=== PATIENT | female | born 1965 | race American Indian/Alaskan Native ===

== ENCOUNTER → 2016-11-19 | Outpatient (CLI) | payer MEDICARE, OTHER | LOC: MW.CHGS 08:00 | PROVIDERS: ATTEND Surgery | DX: K62.5 Hemorrhage of anus and rectum (principal); Z80.0 Family history of malignant neoplasm of digestive organs; F32.9 Major depressive disorder, single episode, unspecified; I10 Essential (primary) hypertension | CPT/HCPCS: 99214 ==

== ENCOUNTER 2016-11-28 08:08 | Day surgery (SDC) | payer MEDICARE, OTHER ==
[~2016-11-28 08:08] MED LIST: Lactated Ringers 1,000 ML IV SCH; Lidocaine 2% 5 ML SDV ONE; Midazolam 1 MG/ML 2 ML SDV ONE; Propofol 200 MG/20 ML SDV ONE; fentaNYL 100 MCG/2 ML SDV ONE
--- NOTE | 2016-11-28 08:34 | PCM.PREANE ---
Preanesthetic Assessment - Anesthesia/Transfusion/Family Hx Anesthesia History: Prior Anesthesia Without Reaction Other Type of Anesthesia Reaction Comment: Only problem in past is "I have TMJ and they had trouble last surgery" Family History of Anesthesia Reaction: No Transfusion History: No Prior Transfusion(s) Intubation History: Unknown - Review of Systems General: No Symptoms Pulmonary: No Symptoms Cardiovascular: No Symptoms Neurological: No Symptoms Other: Reports: None - Physical Assessment O2 Sat by Pulse Oximetry: 97 Respiratory Rate: 16 Vital Signs: Last Vital Signs Temp 36.9 C 11/28/16 08:24 Pulse 88 11/28/16 08:24 Resp 16 11/28/16 08:24 BP 122/71 11/28/16 08:24 Pulse Ox 97 11/28/16 08:24 Height: 1.7 m Weight: 68.492 kg ASA Class: 3 Mental Status: Alert & Oriented x3 Airway Class: Mallampati = 2 Dentition: Reports: Normal Dentition, [place](s) (x1 upper front (left)) Thyro-Mental Finger Breadths: 3 Mouth Opening Finger Breadths: 3 ROM/Head Extension: Full Lungs: Clear to auscultation, Normal respiratory effort Cardiovascular: Regular Rate, Regular Rhythm - Allergies Allergies/Adverse Reactions: Allergies Allergy/AdvReac Type Severity Reaction Status Date / Time levofloxacin [From Levaquin] Allergy Vomiting Verified 08/14/16 14:02 lisinopril Allergy Nausea Verified 11/26/16 12:16 tramadol Allergy Nausea and Verified 08/14/16 14:02 Vomiting venom-honey bee Allergy Hives Verified 08/14/16 14:02 [bee venom (honey bee)] - Blood Blood Available: No - Anesthesia Plan Pre-Op Medication Ordered: None - Acknowledgements Anesthesia Type Planned: MAC Pt an Appropriate Candidate for the Planned Anesthesia: Yes Alternatives and Risks of Anesthesia Discussed w Pt/Guardian: Yes Pt/Guardian Understands and Agrees with Anesthesia Plan: Yes PreAnesthesia Questionnaire Other HEENT History: "TMJ" 'caused problems with a prior surgery' Cardiovascular History: Reports: High cholesterol, Hypertension Gastrointestinal History: Reports: Other (see below) Other Gastrointestinal History: presently c/o upset stomach caused from metformin Genitourinary History: Reports: Renal calculus Other Genitourinary History: hx kidney stone Musculoskeletal History: Reports: Fibromyalgia, RA, Other (see below) Other Musculoskeletal History: hx: fractured 2nd toe Right foot Neurological History: Reports: Concussion, MS (get tired easy) Psychiatric History: Reports: Anxiety, Depression, Suicide attempt Endocrine/Metabolic History: Reports: Diabetes, type II, Other (see below) ( lost 60 lb due to sevewre depression) - Infectious Disease History Infectious Disease History: Reports: Chicken pox, Shingles - Past Surgical History Head Surgeries/Procedures: Reports: None HEENT Surgical History: Reports: Naso-sinus surgery Other HEENT Surgeries/Procedures: Sinus Surgery GI Surgical History: Reports: Colonoscopy (2 years ago) Other GI Surgeries/Procedures: Gastric Bypass Female Surgical History: Reports: Breast biopsy Other Female Surgeries/Procedures: hx breast lumpectomy Musculoskeletal Surgical History: Reports: Other (see below) Other Musculoskeletal Surgeries/Procedures:: Right Bunionectomy - SUBSTANCE USE Smoking Status *Q: Current Every Day Smoker (1/2 ppd) Tobacco Use Within Last Twelve Months: Cigarettes Days Per Week of Alcohol Use: 0 Recreational Drug Use History: No - HOME MEDS Home Medications: Home Meds Cholecalciferol (Vitamin D3) [Vitamin D3] 1 ml PO DAILY 11/26/16 [History] QUEtiapine Fumarate [Quetiapine Fumarate ER] 200 mg PO BEDTIME 11/26/16 [History ] Triamterene/Hydrochlorothiazid [Triamterene-HCTZ 37.5-25 MG] 1 tab PO DAILY [History] Venlafaxine HCl [Venlafaxine HCl ER] 75 mg PO DAILY 11/26/16 [History] Venlafaxine HCl [Venlafaxine HCl ER] 150 mg PO DAILY 11/26/16 [History] buPROPion HCl [Wellbutrin Xl] 100 mg PO DAILY 11/26/16 [History] metFORMIN HCl [Metformin HCl] 125 mg PO DAILY 11/26/16 [History] - CURRENT (IN HOUSE) MEDS Current Meds: Current Medications Lactated Ringer's (Ringers, Lactated) 1,000 mls @ 125 mls/hr IV ASDIRECTED KARISHMA Last Admin: 11/28/16 08:23 Dose: 125 mls/hr Discontinued Medications Fentanyl (Sublimaze) Confirm Administered Dose 100 mcg .ROUTE .STK-MED ONE Stop: 11/28/16 07:05 Lidocaine (Xylocaine-Mpf 2%) Confirm Administered Dose 5 ml .ROUTE .STK-MED ONE Stop: 11/28/16 07:05 Midazolam HCl (Versed 1 Mg/Ml) Confirm Administered Dose 2 mg .ROUTE .STK-MED ONE Stop: 11/28/16 07:05 Propofol (Diprivan 20 Ml) Confirm Administered Dose 400 mg .ROUTE .STK-MED ONE Stop: 11/28/16 07:05
[2016-11-28] MEDS ORDERED: Propofol 200 MG/20 ML SDV ONE ×3 (09:21→09:41)
[2016-11-28] MEDS ORDERED: Lactated Ringers 1,000 ML IV SCH (10:00)
--- NOTE | 2016-11-28 10:01 | PCM.OPNOTE ---
- General Post-Op/Procedure Note Date of Surgery/Procedure: 11/28/16 Operative Procedure(s): Colonoscopy (16952) Pre Op Diagnosis: Rectal bleeding. Family history of colon cancer. Post-Op Diagnosis: No evidence of neoplasia. Poor bowel prep. Anesthesia Technique: MAC (ASA III) Primary Surgeon: Garrett Torres Condition: Good Free Text/Narrative:: Dictation [id number]
--- NOTE | 2016-11-28 10:10 | PCM.POSTAN ---
POST ANESTHESIA ASSESSMENT - MENTAL STATUS Mental Status: alert, oriented - RESPIRATORY Respiratory Status: respiratory rate WNL, airway patent, O2 saturation stable - CARDIOVASCULAR CV Status: pulse rate WNL, blood pressure stable - GASTROINTESTINAL GI Status: no symptoms - POST OP HYDRATION Hydration Status: adequate & stable - OBSERVATIONS Free Text/Narrative:: no anesthesia problems
[2016-11-28 10:24] VITALS: BP 132/78
--- NOTE | 2016-11-28 15:18 | OR ---
SURGEON: Garrett Torres M.D. DATE OF PROCEDURE: 11/28/2016 OPERATION PERFORMED: Colonoscopy. ANESTHESIA: MAC. ASA CLASSIFICATION: III. PREOPERATIVE DIAGNOSES: 1. Rectal bleeding. 2. Family history of colon cancer. POSTOPERATIVE DIAGNOSES: 1. Poor bowel prep. 2. No obvious neoplasia. DESCRIPTION OF PROCEDURE: The patient was taken to the endoscopy room, positioned on the endoscopy table in the left lateral decubitus position. Time-out was called for appropriate identification of the patient and procedure. Monitored anesthesia care was provided. The colonoscope was inserted into the rectum and advanced with significant difficulty to the cecum. The prep was very poor and certainly small lesions could be missed. I was able to advance the colonoscope to the proximal ascending colon visualizing the cecum in the distance. I was not able to retroflex the colonoscope in the cecum. The colonoscope was then straightened and slowly withdrawn. As stated the bowel prep was very poor and certainly a [id number] sized polyp could be missed with the thick particulate matter. The cecum, ascending colon, hepatic flexure, transverse colon, splenic flexure, descending colon, sigmoid colon, and rectum were visualized as good as they could under the circumstances. I did not see any obstructing neoplasm. I did not see anything accounting for rectal bleeding. The colonoscope was withdrawn to the rectum and retroflexed. Again, the prep was poor, but I did not see any evidence of a rectal tumor nor any acute hemorrhoids. The colonoscope was then straightened, the rectum aspirated, and the colonoscope removed. The patient tolerated the procedure well and was taken to recovery room in stable condition. JUAN J / RACHANA /[id number]
== END 2016-11-28 11:00 | disposition home or self-care (01) ==
LOC: MW.SDS 08:08
PROVIDERS: ATTEND Surgery
PROC: 0DJD8ZZ Inspection of Lower Intestinal Tract, Via Natural or Artificial Opening Endoscopic (ICD-10-PCS; principal; 2016-11-28)
DX: K62.5 Hemorrhage of anus and rectum (principal); M19.90 Unspecified osteoarthritis, unspecified site; F32.9 Major depressive disorder, single episode, unspecified; I10 Essential (primary) hypertension; E78.00 Pure hypercholesterolemia, unspecified; G35 Multiple sclerosis; M06.9 Rheumatoid arthritis, unspecified; F17.210 Nicotine dependence, cigarettes, uncomplicated; E11.9 Type 2 diabetes mellitus without complications; Z87.442 Personal history of urinary calculi; Z80.0 Family history of malignant neoplasm of digestive organs; Z88.1 Allergy status to other antibiotic agents; Z88.8 Allergy status to other drugs, medicaments and biological substances; Z91.030 Bee allergy status; Z79.84 Long term (current) use of oral hypoglycemic drugs; Z79.899 Other long term (current) drug therapy; Z98.890 Other specified postprocedural states; Z98.84 Bariatric surgery status
CPT/HCPCS: 45378; J2250; J3010; J7120; J2704